=== PATIENT | male | born 1955 | race Caucasian/White ===

== ENCOUNTER 2022-05-13 21:53 | Emergency (ER) | payer MEDICARE, BC, SELFPAY ==
--- NOTE | ~2022-05-13 | XR_ITS ---
EXAMINATION: XR CHEST CLINICAL INFORMATION: Dizziness COMPARISON: None TECHNIQUE: Frontal view of the chest was obtained. FINDINGS: Cardiac leads overlie the chest. The lungs are well expanded. There is no focal consolidation, edema, or effusion. No pneumothorax. The cardiomediastinal silhouette is within normal limits. No acute osseous abnormality. XR/XR chest 1V IMPRESSION: Clear lungs.
[2022-05-13 23:07] VITALS: BP 117/64; PULSE 54; RESP 18; TEMP 36.7; O2SAT 96; BMI 21.7
--- NOTE | 2022-05-13 23:11 | ECG_ITS ---
Test Reason : DIZZINESS Blood Pressure : / mmHG Vent. Rate : 049 BPM Atrial Rate : 049 BPM P-R Int : 152 ms QRS Dur : 104 ms QT Int : 412 ms P-R-T Axes : 069 071 053 degrees QTc Int : 372 ms Sinus bradycardia Otherwise normal ECG When compared with ECG of 29-AUG-2002 00:31, Vent. rate has decreased BY 30 BPM Referred By: Generic ED Physician Electronically Signed By:LOU PURDY
--- NOTE | 2022-05-14 00:17 | ED_ITS ---
HPI - Dizziness General Chief Complaint: General Medical Stated Complaint: dizziness,nausea Time Seen by Provider: 05/14/22 00:14 Source: patient Mode of arrival: ambulatory Limitations: no limitations History of Present Illness HPI Narrative: 67 yo male with hx of HLD, SAM - states he takes diltiazem for it which is unusual but states this is why he is on it notes about 2 hours prior to arrival he was feeling lightheaded and his BPs were low 100/50s if he tried to get up or sit up his lightheadedness were much worse. He denies weakness/numbness/CP/SOB. He reports no change in medications. He has been dealing with a back sprain from golf but is is getting better. He denies headache MD elicited complaint: lightheadedness Onset (ago): hour(s) (2 hours prior to arrival ) Timing: gradual onset Severity: moderate Description: lightheadedness Context: change in body position History of similar symptoms: No Exacerbating factors: movement/ambulation and change in body position Relieving factors: remaining still Associated symptoms: denies other symptoms Related Data Allergies Allergy/AdvReac Type Severity Reaction Status Date / Time No Known Allergies Allergy Verified 05/13/22 23:09 Review of Systems Review of Systems: Constitutional : No Fever, No Chills, No Fatigue, No Malaise ENT/Mouth : No sore throat, No Rhinorrhea Eyes: No Eye Pain, No Swelling, No Redness Cardiovascular : No Chest Pain, No SOB, No Edema, No Palpitations Respiratory : No Cough, No Sputum, No Wheezing Gastrointestinal : No Nausea, No Vomiting, No Diarrhea, No abdominal Pain, No Hematochezia, No Melena Genitourinary : No Dysuria, No Urinary Frequency, No Hematuria, Musculoskeletal : No joint pain, No Myalgias, No Joint Swelling Skin : No Skin Lesions, No rash Neuro : No Weakness, No Numbness, pos Dizziness, No Headache Psych : No Anxiety/Panic, No Depression Heme/Lymph: No Bruising, No Bleeding,No Lymphadenopathy Endocrine : No Polyuria, No Polydipsia All other systems reviewed and are negative [facility] Past Medical History Attestation statement: The following information was validated with the patient. Medical History Hyperlipidemia Obstructive sleep apnea Social History Social History (Updated 05/14/22 @ 01:04 by Maggie Mathis DO) Patient Tobacco Use Status: Never used Tobacco Advance Directives: No Advance Directives Information Provided: Yes Physical Exam Vital Signs: Vital Signs: Last Vital Signs Temp 98.0 F 05/13/22 23:07 Pulse 59 05/14/22 01:24 Resp 18 05/14/22 00:22 BP 110/60 05/14/22 01:24 Pulse Ox 98 05/14/22 00:22 O2 Del Method 05/14/22 00:22 BMI result Body Mass Index 21.7 Appearance: Alert. Oriented X3. No acute distress. Eyes: Pupils equal, round and reactive to light. ENT: Pharynx normal. Neck: Normal inspection. Neck supple. CVS: Normal heart rate and rhythm. Pulses normal. Respiratory: No respiratory distress. Breath sounds normal. Abdomen: Soft and non-tender. Skin: Skin warm and dry. Normal skin color. Normal skin turgor. Extremities: No lower extremity edema. No calf ttp Neuro: Oriented X 3. No motor deficit. No sensory deficit. Course Course Course Narrative: labs within normal limits VS stable feels much better after fluids wants to go home MDM - Dizziness MDM Narrative Medical decision making narrative: 67 yo male with hx of SAM nd HLD comes in feeling lightheaded while at home he reports no CP/SOB GIB symptoms he is not toxic at this time states he feels slightly better hx of one episode in past related to dehydration. At thist mary will need labs, IVF, reassessments. No other symptoms to suggest posterior stroke. Lab Data Result diagrams: 05/14/22 00:17 05/14/22 00:17 Labs: Lab Results 05/14/22 05/14/22 05/14/22 Range/Units 00:17 00:17 00:17 WBC 8.8 (4.8-10.8) X10*3/uL RBC 4.76 (4.60-5.80) X10*6/uL Hgb 15.3 (14.0-18.0) g/dl Hct 44.0 (42.0-52.0) % MCV 92.4 (80.0-98.0) fL MCH 32.1 (27.0-33.0) pg MCHC 34.8 (31.0-36.0) g/dl RDW 12.3 (11.0-16.0) % Plt Count 145 L (160-400) X10*3/uL MPV 9.2 L (9.4-12.4) fL Immature Gran % (Auto) 0.2 (0.0-0.4) % Neut % (Auto) 75.0 H (45-73) % Lymph % (Auto) 15.8 L (20-40) % [place] % (Auto) 7.3 (2-11) % Eos % (Auto) 1.4 (0-4) % Baso % (Auto) 0.3 (0-2) % Lymph # (Auto) 1.4 (1.2-4.9) X10*3/uL [place] # (Auto) 0.6 (0.1-1.2) X10*3/uL Eos # (Auto) 0.1 (0.0-0.4) X10*3/uL Baso # (Auto) 0.0 (0.0-0.2) X10*3/uL Abs Immat Gran (auto) 0.02 (0.00-0.03) X10*3/uL Absolute Neuts (auto) 6.6 (2.0-8.3) x10*3/uL Absolute Nucleated RBC 0.000 (0.0-0.012) X10*3/uL Nucleated RBC % (auto) 0.0 (0.0-0.2) /100WBC Sodium 139 (135-145) mmol/L Potassium 3.8 (3.3-5.1) mmol/L Chloride 103 (96-108) mmol/L Carbon Dioxide 25 (22-29) mmol/L Anion Gap 15 (12-20) BUN 20 H (9-16) mg/dL Creatinine 1.05 (0.5-1.4) mg/dL Estim Creat Clear Calc 69.1 Estimated GFR > 60 Random Glucose 120 H (60-115) mg/dL Calcium 9.3 (8.4-10.2) mg/dL Troponin I High Sens < 3.5 (<3.5-35.0) ng/L ECG Data Attestation: I personally reviewed and interpreted this ECG as follows: ECG interpretation date: 05/14/22 ECG interpretation time: 01:12 Interpretation: Rate: 49 Rhythm: sinus bradycardia [place]: normal Normal P waves. Normal ADRIANA. Normal QRS complex. ST T wave : normal no CARMEL qTC: normal prior studies: no acute ischemia The study has been interpreted contemporaneously by me. . Discharge Plan Discharge Clinical Impression: Acute dehydration, Light-headedness Patient Disposition: Home, Self-Care Instructions: Dehydration (ED), Lightheadedness (ED) Additional Instructions: hold your diltiazem tonight labs stable, drink plenty of fluids Referrals: Antoni Larson [Primary Care Provider] - 2 days
[2022-05-14 00:22] VITALS: BP 102/63; PULSE 49; RESP 18; O2SAT 98
[2022-05-14 00:23] LABS: MANUAL DIFF FLAG NO
[2022-05-14 00:24] LABS: Basophils Percent Auto 0.3 % (0-2); Eosinophils Absolute Auto 0.1 X10*3/uL (0.0-0.4); Eosinophils Percent Auto 1.4 % (0-4); Hemoglobin 15.3 g/dl (14.0-18.0); Imm Gran Abs Auto 0.02 X10*3/uL (0.00-0.03); Imm Gran Pct Auto 0.2 % (0.0-0.4); Lymphocytes Absolute Auto 1.4 X10*3/uL (1.2-4.9); Lymphocytes Percent Auto 15.8 % (20-40); Mean Corpuscular HGB Conc 34.8 g/dl (31.0-36.0); Mean Corpuscular Hemoglobin 32.1 pg (27.0-33.0); Mean Corpuscular Volume 92.4 fL (80.0-98.0); Mean Platelet Volume 9.2 fL (9.4-12.4); Monocytes Absolute Auto 0.6 X10*3/uL (0.1-1.2); Monocytes Percent Auto 7.3 % (2-11); Neutrophils Absolute Auto 6.6 x10*3/uL (2.0-8.3); Platelet Count 145 X10*3/uL (160-400); Red Blood Count 4.76 X10*6/uL (4.60-5.80); Red Cell Distribution Width 12.3 % (11.0-16.0); White Blood Count 8.8 X10*3/uL (4.8-10.8)
[2022-05-14 00:43] LABS: Troponin-I High Sensitivity < 3.5 ng/L (<3.5-35.0)
[2022-05-14 00:44] LABS: Anion Gap 15 (12-20); Blood Urea Nitrogen 20 mg/dL (9-16); Calcium 9.3 mg/dL (8.4-10.2); Carbon Dioxide 25 mmol/L (22-29); Chloride 103 mmol/L (96-108); Creatinine Clr Calc Pharmacy 69.1; Estimated Glomerular Filt Rate > 60; Glucose Random 120 mg/dL (60-115); Potassium 3.8 mmol/L (3.3-5.1); Sodium 139 mmol/L (135-145)
[2022-05-14 01:21] VITALS: BP 99/58; PULSE 55
[2022-05-14 01:23] VITALS: BP 104/63; PULSE 66
[2022-05-14 01:24] VITALS: BP 110/60; PULSE 59
[2022-05-14] MEDS: Lactated Ringers 1,000 ML 999 ML IV (01:28)
== END 2022-05-14 02:49 | disposition home or self-care (01) ==
PROVIDERS: Emergency Provider Emergency Medicine; PCP Hospitalist
DX: E86.0 Dehydration (principal); R42 Dizziness and giddiness; R11.2 Nausea with vomiting, unspecified
CPT/HCPCS: 36415; 71045; 80048; 84484; 85025; 93005; 96365; 99284